=== PATIENT | male | born 1950 | race Caucasian/White ===

== ENCOUNTER 2023-11-21 21:10 | Emergency (ER) | payer OTHER, SELFPAY ==
[2023-11-21 21:12] VITALS: BP 100/58
[2023-11-21 21:37] LABS: % Basophils 0.7 % (0-2); % Eosinophils 2.5 % (0-6); % Immature Granulocytes 0.4 % (0-0.5); % Lymphocytes 24.7 % (20.5-51.1); % Monocytes 8.1 % (1.7-9.3); % Neutrophils 63.6 % (42.2-75.2); Absolute Basophils 0.1 10^3/uL (0-0.2); Absolute Eosinophils 0.3 10^3/uL (0-0.7); Absolute Lymphocytes 2.6 10^3/uL (1.2-3.4); Absolute Monocytes 0.8 10^3/uL (0.1-0.6); Absolute Neutrophils 6.6 10^3/uL (1.4-6.5); Hematocrit 43.7 % (39.0-52.0); Hemoglobin 15.1 g/dL (13.0-18.0); Mean Corp Hgb Conc. 34.6 g/dL (33.0-37.0); Mean Corpuscular Hgb 28.5 pg (27.0-31.0); Mean Corpuscular Volume 82.5 fL (80.0-94.0); Mean Platelet Volume 8.6 fL (7.4-10.4); Nucleated Red Blood Cells % 0 % (-); Platelet Count 490 10^3/uL (130-400); Red Cell Dist. Width 13.2 % (11.5-14.5); White Blood Cell Count 10.4 10^3/uL (4.8-10.8)
[2023-11-21 21:55] LABS: ALT (SGPT) < 10 U/L (0-50); AST (SGOT) 16 U/L (17-59); Albumin 3.5 g/dl (3.5-5.0); Alkaline Phosphatase 65 U/L (38-126); Blood Urea Nitrogen 23 mg/dl (9-20); Carbon Dioxide 30 mmol/L (22-30); Chloride 96 mmol/L (98-107); Glucose 115 mg/dl (70-99); Potassium 3.9 mmol/L (3.5-5.1); Sodium 136 mmol/L (135-145); Total Bilirubin 0.6 mg/dl (0.2-1.3); Total Protein 6.2 g/dl (6.3-8.2); eGFR > 60.00
[2023-11-21 22:01] LABS: Troponin I < 0.012 ng/ml
[2023-11-22 01:17] VITALS: BP 139/69; BMI 23.1
[2023-11-22] MEDS: LIDOCAINE 4% PATCH 1 PATCH TOPICAL (01:38)
[2023-11-22 01:57] LABS: Troponin I < 0.012 ng/ml
[2023-11-22 02:00] VITALS: BP 135/69
--- NOTE | 2023-11-22 02:05 | ED.GENMED ---
History of Present Illness
General
Chief Complaint: Chest Pain
Source: patient
Time Seen by Provider: 11/22/23 00:58
Travel History
Have you had any contact with someone who has COVID-19?: No
Do you have any symptoms of coronavirus? Fever > 100 degrees, chills, cough, shortness of breath, sore throat, loss of taste or smell, muscle aches, or headache?: No
History of Present Illness
History of Present Illness:
72-year-old male presents to the emergency room complaining of left chest pain rating to left arm. Patient also complaining of a posterior headache and neck pain. Patient suffered a neck injury and fracture several weeks ago. This was treated
with cervical spine immobilization in a collar. He is now out of the collar but continues to have chronic neck pain. Chest pain began earlier today. It is constant. Denies any associated shortness of breath. To make the chest pain better or
worse.
Past History
Past History
ED Past Medical History: CAD (Status post [place] 3 years ago) and HTN
ED Past Surgical History: None
Social History
Tobacco: Smoker
Alcohol: None
Living: alone
Employment: Employed
Family History
Family History: CAD
Phy Exam
Physical Exam
Physical Exam:
General: Awake, Alert, Oriented X3. Chronically ill-appearing
Vitals: unremarkable
Head: Atraumatic
Eyes: Pupils equal, EOMI
Throat: Airway intact, no exudates
Neck: Trachea midline
Lungs: Clear and equal b/l
Heart: Regular rate, no murmurs
Abd: Soft, Nontender, No pulsatile mass
Neuro: Nonfocal
Extremities: pulses equal b/l, no edema
Scores
Heart Score for Chest Pain Patients
STEMI patient?: No
History: Moderately Suspicious
ECG: Normal
Age: >/= 65 years
Risk Factors: >/= 3 Risk Factors or History of CAD
Troponin: </= Normal Limit
Heart Score for Chest Pain Patients: 5
Heart Score Risk: 20.3% MACE over next 6 weeks
Course
Orders/Labs/Results
Orders:
Orders
11/21/23 21:15
Electrocardiogram (*1) Urgent
Reason for Study: Chest Pain
11/21/23 21:28
CMP [Comprehensive Metabolic Panel] Urgent
Complete Blood Count/With Diff Urgent
Troponin I Urgent
11/21/23 21:30
CR Chest - 2 Views Urgent
Comment:
Reason For Exam: chest pain
11/21/23 21:35
ECG [Electrocardiogram (*1)] Urgent
Reason for Study: Chest Pain
11/21/23 21:36
EKG- Treatment ONCE
11/22/23 01:18
Lidocaine [Lidocaine 4% Patch] 1 patch TOPICAL NOW STA
11/22/23 01:19
Troponin I Urgent
Abnormal Lab Results
11/21/23
21:28
Plt Count 490 H 10^3/uL
(130-400)
Absolute Neuts (auto) 6.6 H 10^3/uL
(1.4-6.5)
Absolute Monos (auto) 0.8 H 10^3/uL
(0.1-0.6)
Chloride 96 L mmol/L
(98-107)
BUN 23 H mg/dl
(9-20)
Glucose 115 H mg/dl
(70-99)
AST 16 L U/L
(17-59)
Total Protein 6.2 L g/dl
(6.3-8.2)
11/21/23 21:28
11/21/23 21:28
Vital Signs
Initial and Last Documented VS:
Initial Vital Signs
Temp Pulse Resp BP Pulse Ox
98.1 F 64 24 100/58 98
11/21/23 21:12 11/21/23 21:12 11/21/23 21:12 11/21/23 21:12 11/21/23 21:12
Last Documented Vital Signs
Temp Pulse Resp BP Pulse Ox
98.1 F 68 13 135/69 98
11/21/23 21:12 11/22/23 02:15 11/22/23 02:15 11/22/23 02:00 11/21/23 21:12
MDM/Problems Addressed
Differential Diagnosis Includes:
ACS, pneumothorax, chest wall pain
MDM/Problems Addressed:
Patient presents with chest pain. EKG shows no acute abnormalities. No change with repeat EKG. Troponins negative x 2. Chest x-ray is unremarkable. Patient stable for discharge home and outpatient follow-up. Patient placed on the chest pain
outlined
*Pulse Oximetry
Patient hypoxic: no
*EKG
Interpreted by ED Provider?: Yes
Interpretation: normal
Heart Rate: 71
Rate: normal
Rhythm: sinus
[place]: normal axis
Interval: normal interval
QRS Pattern: normal QRS
Ischemia: no ischemia
*Tower Operator Interpretation
Rate: normal
Interpretation: normal
Rhythm: sinus
*Critical Care Note
Total Time (30-74mins, 75-104mins- exclusive of procedures): Not Applicable
ED Attending Note
-
Portions of this chart may have been created with voice recognition software.� Occasional wrong word or��sound alike� substitutions may have occurred due to the inherent limitations of voice recognition software.
Discharge Plan
Departure
Patient Disposition: Home (Routine Discharge)
Date of Disposition: 11/22/23
Time of Disposition: 02:05
Patient with high blood pressure during this ER visit?: No
Condition: Good
Discharge Problem:
Neck pain, chronic, Chest pain
Instructions: Chest Pain CBC Follow Up
Prescriptions:
No Action
metoprolol tartrate 25 MG tablet
25 mg PO BID
aspirin [Aspir-81] 81 MG tablet,delayed release (DR/EC)
81 mg PO DAILY
simvastatin 40 MG tablet
40 mg PO HS
oxycodone-acetaminophen [Percocet] 1 EACH tablet
1 ea PO Q6 PRN (Reason: Pain)
nitroglycerin 0.4 MG tablet, sublingual
0.4 mg sublingual [id number] PRN (Reason: Chest Pain)
Referrals:
Zunilda Valdivia MD [Family Provider] -
Interventions
Interventions:
*Risk Screen - Suicide Last Done: 11/21/23 21:12
*General Assessment Last Done: 11/22/23 01:17
*Neglect/Abuse Screening Last Done: 11/21/23 21:12
ED- Fall Risk Assessment Last Done: 11/22/23 01:32
*ED COVID-19 Vaccine History Last Done: 11/22/23 01:17
*Nursing Disposition Last Done: 11/22/23 02:30
ED- Cardiac Assessment Last Done: 11/22/23 01:32
ED- Neurological Assessment Last Done: 11/22/23 01:32
Discharge Date and Time
Discharge Date/Time: 11/22/23 02:32
--- NOTE | 2023-11-22 02:18 | EDRN ---
Dr. Richey in at bedside going over results and plan for discharge.
== END 2023-11-22 02:32 | disposition home or self-care (01) ==
LOC: EMR 21:10
PROVIDERS: Emergency Medicine; EMERGENCY PHYSICIAN Emergency Medicine; FAMILY PHYSICIAN Family Medicine
DX: G89.29 Other chronic pain (principal); M54.2 Cervicalgia; R07.89 Other chest pain; F17.200 Nicotine dependence, unspecified, uncomplicated
CPT/HCPCS: 99285; 71046; 80053; 84484; 85025; 93005

== ENCOUNTER 2023-12-04 14:36 | Emergency (ER) | payer OTHER, SELFPAY ==
[2023-12-04 14:39] VITALS: BP 128/70
[2023-12-04 14:53] LABS: % Basophils 0.8 % (0-2); % Eosinophils 2.9 % (0-6); % Immature Granulocytes 0.6 % (0-0.5); % Lymphocytes 23.1 % (20.5-51.1); % Monocytes 8.5 % (1.7-9.3); % Neutrophils 64.1 % (42.2-75.2); Absolute Basophils 0.1 10^3/uL (0-0.2); Absolute Eosinophils 0.3 10^3/uL (0-0.7); Absolute Immature Granulocytes 0.1 10^3/uL (0-0.05); Absolute Lymphocytes 2.1 10^3/uL (1.2-3.4); Absolute Monocytes 0.8 10^3/uL (0.1-0.6); Absolute Neutrophils 5.8 10^3/uL (1.4-6.5); Hematocrit 45.5 % (39.0-52.0); Hemoglobin 15.6 g/dL (13.0-18.0); Mean Corp Hgb Conc. 34.3 g/dL (33.0-37.0); Mean Corpuscular Hgb 28.5 pg (27.0-31.0); Mean Corpuscular Volume 83.2 fL (80.0-94.0); Mean Platelet Volume 8.5 fL (7.4-10.4); Nucleated Red Blood Cells % 0 % (-); Platelet Count 365 10^3/uL (130-400); Red Blood Cell Count 5.47 10^6/uL (4.70-6.10); Red Cell Dist. Width 13.6 % (11.5-14.5); White Blood Cell Count 9.1 10^3/uL (4.8-10.8)
[2023-12-04 15:06] LABS: ALT (SGPT) 11 U/L (0-50); AST (SGOT) 20 U/L (17-59); Albumin 3.9 g/dl (3.5-5.0); Alkaline Phosphatase 71 U/L (38-126); Blood Urea Nitrogen 19 mg/dl (9-20); Calcium 9.5 mg/dl (8.4-10.2); Carbon Dioxide 27 mmol/L (22-30); Chloride 102 mmol/L (98-107); Glucose 151 mg/dl (70-99); Sodium 135 mmol/L (135-145); Total Bilirubin 0.6 mg/dl (0.2-1.3); Total Protein 6.5 g/dl (6.3-8.2); eGFR > 60.00
[2023-12-04 15:50] VITALS: BP 112/74
--- NOTE | 2023-12-04 15:58 | ED.GENMED ---
History of Present Illness
General
Chief Complaint: Male Genito-Urinary Symptoms
Time Seen by Provider: 12/04/23 15:38
Travel History
Have you had any contact with someone who has COVID-19?: No
Do you have any symptoms of coronavirus? Fever > 100 degrees, chills, cough, shortness of breath, sore throat, loss of taste or smell, muscle aches, or headache?: No
History of Present Illness
History of Present Illness:
72-year-old male with history of hypertension, hyperlipidemia, coronary artery disease, tobacco abuse presents the emergency department for evaluation of persistent right groin pain ongoing for the past month. Also states to be 'I have something on
my bladder'.
Hospitalist consulted. He is not certain what he is supposed to do with this information. He has not seen a urologist. He reports he has difficulty starting his urine stream but denies any nocturia or urinary dribbling. Denies any dysuria or
urgency. No fevers or chills. No lower abdominal pain
Past History
Past History
ED Past Medical History: CAD (Status post [place] 3 years ago) and HTN
ED Past Surgical History: None
Social History
Tobacco: Smoker
Alcohol: None
Living: alone
Employment: Employed
Family History
Family History: CAD
Review of Systems
Review of Systems
Allergies reviewed?: Yes
All Other Systems: ROS reviewed and negative except as documented in HPI and ROS
Phy Exam
Physical Exam
Physical Exam:
GEN: Well appearing, NAD, WDWN
Eyes: PERRLA, EOMs intact, no scleral icterus
HENT: NCAT, oral mucosa moist
Lungs: CTAB, no wheezes, rales, rhonchi, normal chest wall excursion
Cardiac: RRR, no M/R/G, no peripheral edema. Radial pulses 2+ bilat
Abdomen: S, NT, ND, NABS, no masses or hepatosplenomegaly
: No gross abnormalities. No palpable inguinal hernia bilaterally however the patient is tender along the right inguinal region, no masses. Unremarkable scrotal exam, no masses or swelling, nontender
Neuro: AO x 3
MSK: No gross deformity or ecchymosis. No edema. No digital clubbing
Skin: No rashes, petechiae. Normal color, no pallor or jaundice.
Psych: Calm, cooperative, proper hygiene
Course
Orders/Labs/Results
Orders:
Orders
12/04/23 14:42
Urinalysis Reflex To Culture Urgent
Date Specimen was Collected: 12/04/23
Time Specimen was Collected: 14:42
Urine Microscopic Reflex Cult Urgent
12/04/23 14:46
Complete Blood Count/With Diff Urgent
Comprehensive Metabolic Panel Urgent
12/04/23 15:57
Bladder Scan- Treatment ONCE
US Groin (Imaging Only) RT Urgent
Comment:
Reason For Exam: R groin pain/lump
12/04/23 18:23
Acetaminophen [Tylenol] 650 mg PO NOW STA
Ibuprofen [Motrin] 400 mg PO NOW STA
Abnormal Lab Results
12/04/23 12/04/23
14:42 14:46
Abs Immat Gran (auto) 0.1 H 10^3/uL
(0-0.05)
Absolute Monos (auto) 0.8 H 10^3/uL
(0.1-0.6)
Immature Gran % 0.6 H %
(0-0.5)
Glucose 151 H mg/dl
(70-99)
Leukocyte Esterase Rfl Trace A
(Negative)
Urine Bacteria (Reflex) Few A
(Negative)
12/04/23 14:46
12/04/23 14:46
Vital Signs
Initial and Last Documented VS:
Initial Vital Signs
Temp Pulse Resp BP Pulse Ox
98.0 F 81 16 128/70 98
12/04/23 14:39 12/04/23 14:39 12/04/23 14:39 12/04/23 14:39 12/04/23 14:39
Last Documented Vital Signs
Temp Pulse Resp BP Pulse Ox
98.0 F 75 16 146/61 99
12/04/23 14:39 12/04/23 18:35 12/04/23 18:35 12/04/23 18:35 12/04/23 18:35
MDM/Problems Addressed
MDM/Problems Addressed:
Unclear etiology to the patient's symptoms. He did have a small postvoid residual of 45 mL suggesting some degree of BPH is driving his urinary symptoms. Unclear cause of his pain. I am not sure what to make of his report of having 'something on
the bladder' but feel it is appropriate for this patient to follow-up with urologist for further evaluation
*Critical Care Note
Total Time (30-74mins, 75-104mins- exclusive of procedures): Not Applicable
ED Attending Note
-
Portions of this chart may have been created with voice recognition software.� Occasional wrong word or��sound alike� substitutions may have occurred due to the inherent limitations of voice recognition software.
Discharge Plan
Departure
Patient Disposition: Home (Routine Discharge)
Date of Disposition: 12/04/23
Time of Disposition: 19:09
Patient with high blood pressure during this ER visit?: No
Discharge Problem:
Groin pain
Instructions: Benign Prostatic Hyperplasia (Enlarged Prostate) (DC)
Prescriptions:
No Action
metoprolol tartrate 25 MG tablet
25 mg PO BID
aspirin [Aspir-81] 81 MG tablet,delayed release (DR/EC)
81 mg PO DAILY
simvastatin 40 MG tablet
40 mg PO HS
oxycodone-acetaminophen [Percocet] 1 EACH tablet
1 ea PO Q6 PRN (Reason: Pain)
nitroglycerin 0.4 MG tablet, sublingual
0.4 mg sublingual [id number] PRN (Reason: Chest Pain)
Referrals:
Zunilda Valdivia MD [Family Provider] -
Estiven Johnson MD [Active] -
Interventions
Interventions:
*Risk Screen - Suicide Last Done: 12/04/23 16:40
*General Assessment Last Done: 12/04/23 15:50
*Neglect/Abuse Screening Last Done: 12/04/23 15:50
ED- Fall Risk Assessment Last Done: 12/04/23 15:50
*ED COVID-19 Vaccine History Last Done: 12/04/23 15:50
*Nursing Disposition Last Done: 12/04/23 19:15
ED-Male Genitourinary Assessment Last Done: 12/04/23 15:50
Discharge Date and Time
Discharge Date/Time: 12/04/23 19:15
[2023-12-04 17:25] VITALS: BP 124/60; BMI 26.0
[2023-12-04 18:35] VITALS: BP 146/61
[2023-12-04] MEDS: TYLENOL 650 MG PO (18:36)
[2023-12-04] MEDS: MOTRIN 400 MG PO (18:36)
--- NOTE | 2023-12-04 18:48 | EDRN ---
Pt voided at this time.
[2023-12-04 19:06] LABS: Urine Albumin Negative (Neg - Trace); Urine Bilirubin Negative (Negative); Urine Character Clear (Clear); Urine Color Yellow; Urine Glucose Negative (Negative); Urine Ketone Negative (Negative); Urine Leukocyte Trace (Negative); Urine Nitrite Negative (Negative); Urine Occult Blood Negative (Negative); Urine Specific Gravity 1.015 (<1.030); Urine Urobilinogen Negative (Neg - 1+)
[2023-12-04 19:12] LABS: Urine Red Blood Cell 0-2 /HPF (0-2)
[2023-12-04 19:13] LABS: Urine Bacteria Few (Negative)
== END 2023-12-04 19:15 | disposition home or self-care (01) ==
LOC: EMR 14:36
PROVIDERS: Emergency Medicine; EMERGENCY PHYSICIAN Emergency Medicine; FAMILY PHYSICIAN Family Medicine
DX: R10.31 Right lower quadrant pain (principal); I10 Essential (primary) hypertension; E78.5 Hyperlipidemia, unspecified; I25.10 Atherosclerotic heart disease of native coronary artery without angina pectoris; I25.2 Old myocardial infarction; F17.200 Nicotine dependence, unspecified, uncomplicated; Z82.49 Family history of ischemic heart disease and other diseases of the circulatory system
CPT/HCPCS: 99284; 76882; 80053; 81003; 81015; 85025

== ENCOUNTER → 2024-09-21 10:31 | Outpatient (REF) | payer OTHER, SELFPAY | LOC: DHCBC/DCA 10:31 | PROVIDERS: ATTENDING PHYSICIAN Nurse Practitioner; FAMILY PHYSICIAN Family Medicine | DX: I25.10 Atherosclerotic heart disease of native coronary artery without angina pectoris (principal) | CPT/HCPCS: 78452; 93017; A9500; J2785 ==